=== PATIENT | male | born 1995 | race Caucasian/White ===

== ENCOUNTER 2017-01-12 15:29 | Emergency (ER) | payer OTHER ==
[2017-01-12 17:17] LABS: BASOPHIL 0.7 % (0-2); EOSINOPHIL 1.5 % (0-5); HCT 50.4 % (42.0-52.0); LYMPHOCYTE 10.2 % (15-48); MCH 31.2 pg (25.0-31.0); MCHC 35.7 g/dL (32.0-36.0); MCV 87.3 fL (78.0-100.0); MONOCYTE 13.1 % (0-12); MPV 10.9 fL (6.0-9.5); NEUTROPHIL 74.5 % (41-80); PLT 249 K/uL (150-400); RBC 5.77 M/uL (4.70-6.00); RDW 13.1 % (11.5-14.0); WBC 13.4 K/uL (4.0-10.5)
[2017-01-12 17:28] LABS: ALBUMIN 5.8 g/dL (3.5-5.0); BILIRUBIN - TOTAL 0.9 mg/dL (0.1-1.0); CREATININE 1.9 mg/dL (0.7-1.2); GLOBULIN (CALCULATION) 3.4 g/dL (2.2-4.2); POTASSIUM 3.6 mmol/L (3.5-5.1); TOTAL PROTEIN 9.2 g/dL (6.4-8.3)
[2017-01-12 18:41] LABS: LACTIC ACID 1.1 mmol/L (0.5-2.2)
[2017-01-12 19:55] LABS: BILIRUBIN 2+ mg/dL (NEGATIVE); BLOOD TRACE-INTACT Ery/uL (NEGATIVE); CLARITY HAZY (CLEAR); COLOR YELLOW (YELLOW); GLUCOSE (U) NORMAL (NORMAL); KETONE (U) TRACE mg/dL (NEGATIVE); PROTEIN 2+ mg/dL (NEGATIVE); pH 5.5 (5.0-9.0)
[2017-01-12 19:56] LABS: BACTERIA 1+; LEUKOCYTES NEGATIVE Leu/uL (NEGATIVE); MUCOUS MODERATE; NITRITE NEGATIVE (NEGATIVE)
== END 2017-01-12 22:18 | disposition home or self-care (01) ==
LOC: FER 15:29
PROVIDERS: Internal Medicine; Nurse Practitioner
DX: R10.31 Right lower quadrant pain (principal); R10.11 Right upper quadrant pain; E86.0 Dehydration; R82.90 Unspecified abnormal findings in urine
CPT/HCPCS: 36415; 80053; 81001; 82150; 83605; 83690; 85025; 87040; 87088; J2270; J2405